=== PATIENT | male | born 1950 | race American Indian/Alaskan Native ===

== ENCOUNTER 2017-05-29 08:53 | Day surgery (SDC) | payer MEDICARE ==
[~2017-05-29 08:53] MED LIST: DIPRIVAN 10 MG/ML IV ONE; XYLOCAINE MPF 2% ONE
[2017-05-29] MEDS ORDERED: DIPRIVAN 10 MG/ML IV ONE ×2 (10:49)
[2017-05-29] MEDS ORDERED: WATER FOR IRRIG STERILE IR ONE (10:52)
--- NOTE | 2017-05-29 11:23 | Anesthesia Consultation ---
Anesthesia Consult and Med Hx Date of service: 05/29/17 - Airway Anesthetic Teeth Evaluation: Poor, Dentures (upper) ROM Head & Neck: Adequate Mental/Hyoid Distance: Adequate Mallampati Class: Class III Intubation Access Assessment: Possibly Difficult - Pulmonary Exam CTA: Yes - Cardiac Exam Cardiac Exam: RRR - Pre-Operative Health Status ASA Pre-Surgery Classification: ASA3 Proposed Anesthetic Plan: MAC - Pulmonary Hx Smoking: Yes (quit 1992) Hx Asthma: Yes COPD: Yes Hx Sleep Apnea: Yes - Cardiovascular System Hx Hypertension: Yes - Central Nervous System Hx Neuromuscular Disorder: No Hx Back Pain: Yes (neck pain, ACDF C3-5) - Gastrointestinal Hx Gastroesophageal Reflux Disease: Yes - Endocrine Hx Renal Disease: No (BPH) Hx Liver Disease: No Hx Insulin Dependent Diabetes: No - Hematic Hx Anemia: No Hx Sickle Cell Disease: No - Other Systems Hx Alcohol Use: No Hx Substance Use: No Hx Cancer: No Hx Obesity: No
--- NOTE | 2017-05-29 11:23 | Anesthesia Day of Surgery ---
Anesthesia Day of Surgery - Day of Surgery Patient Examined: Yes Patient H&P Reviewed: Yes Patient is NPO: Yes Beta Blockers: Yes
--- NOTE | 2017-05-29 11:46 | Short Stay Summary ---
Short Stay Documentation Date of service: 05/29/17 Narrative H&P: Patient presents for screening colonoscopy, FH of polyps. Last study approximately 1.5 years ago at which time he had 5 adenomas - History Past Medical History: COPD, hypertension Past Surgical History: Other (prostate surgery) Social history: no significant social history, , lives with family, no smoking, no alcohol abuse - Allergies and Medications Current Medications: Allergies bee venom (honey bee) Allergy (Verified 05/29/17 11:22) EXTREME SWELLING levofloxacin [From Levaquin] Adverse Reaction (Severe, Verified 05/09/16 08:38) Anaphylaxis Home Medications Medication Instructions Recorded Confirmed Last Taken Type Advair Diskus 500-50 mcg 2 puff INFILTRATI BID 05/09/16 05/29/17 05/28/17 History Cranberry 1 tab PO DAILY 05/09/16 05/29/17 05/08/16 History Diovan Hct 80-12.5 mg 1 tab PO DAILY 05/09/16 05/29/17 05/29/17 History Flomax 0.4 mg PO DAILY 05/09/16 05/29/17 05/28/17 History Fluticasone 1 spray INHALATION DAILY 05/09/16 05/29/17 05/29/17 History Ipratropium/Albuter (Nf) 1 puff INHALATION QID 05/09/16 05/29/17 05/08/16 History Levocetirizine Dihydrochloride 5 mg PO DAILY 05/09/16 05/29/17 05/08/16 History Omeprazole 40 mg PO DAILY 05/09/16 05/29/17 05/28/17 History Prednisone 10 mg PO DAILY 05/09/16 05/29/17 05/28/17 History Singulair 10 mg PO DAILY 05/09/16 05/29/17 05/27/17 History Xyzal 5 mg PO DAILY 05/09/16 05/29/17 05/08/16 History clonazePAM 2 mg PO DAILY 05/09/16 05/29/17 05/21/17 History traMADol 50 mg PO PRN PRN 05/09/16 05/29/17 05/06/16 History Active Medications Sodium Chloride (Nacl 0.9% 1000 Ml) 1,000 mls @ 50 mls/hr IV DIRECT JAYCOB Last Admin: 05/29/17 11:36 Dose: 50 mls/hr - Physical exam General appearance: no acute distress, well-nourished, obese Integumentary: no rash, no growths, no abnormal pigmentation HEENT: Atraumatic, PERRLA, EOMI, Mucous membr. moist/pink Lungs: Clear to auscultation, Normal air movement Breasts: deferred Heart: Regular rate, Normal S1, Normal S2, No murmurs, Murmur, Gallops Gastrointestinal: normoactive bowel sounds, no tenderness, no distended, no masses, no guarding, no hepatomegaly, no splenomegaly Male Genitourinary: deferred Rectal Exam: normal exam-external/orifice, normal rectal tone, no mass Extremities: no ischemia, pulses intact, pulses symmetrical, No edema, normal temperature, normal color, Full ROM Neurological: Normal gait, Normal speech, Strength at 5/5 X4 ext, Normal tone, Sensation intact, Cranial nerves 3-12 NL - Brief post op/procedure progress note Findings: see dictation - Discharge Diagnoses (1) History of colonic polyps Status: Acute Short Stay Discharge Plan Activity: other (no driving for 24 hours) Weight Bearing Status: Full Weight Bearing Diet: regular Follow up with: MELISSA FISH MD [Primary Care Provider] - 7 Days
--- NOTE | 2017-05-29 11:49 | Operative Report ---
Operative Report Operative Report: Date of procedure: 05/29/2017 Preprocedure diagnosis: History of 5 adenomas at last colonoscopy 1.5 years ago Post procedure diagnosis: Multiple left colon diverticula but no recurrent polyps Procedure: Colonoscopy to the cecum Endoscopist: Dr. Andrew Anesthesia: Monitored anesthesia care per anesthesia department Estimated blood loss: 0 Medications: Monitored anesthesia care. See separate report by anesthesia for details. After careful discussion of the nature and purpose of the procedure as well as details of the technique risks benefits and alternatives the patient gave consent. Please see recent history and physical from the office. The patient was placed in the left lateral decubitus position and medicated per anesthesia. A rectal exam was performed sphincter tone was normal there were no masses palpable. The [place]nn 570 scope was passed transanally and advanced under continuous direct vision without difficulty to the cecum. The colon was well prepared. The cecum was normal. The ascending colon was normal and on forward and retroflexed views. The transverse colon was normal. The descending colon and sigmoid colon revealed scattered diverticula throughout. The rectum was normal on forward and retroflexed views. The procedure was well-tolerated overall and the patient was observed in recovery. Conclusions: Moderate left colon diverticulosis, no recurrent polyps. Plan: Repeat colonoscopy in 5 years. Signed electronically: Jordon Andrew M.D.
[2017-05-29] MEDS ORDERED: NACL 0.9% 1000 ML 1,000 ML IV SCH (12:00)
[2017-05-29 12:19] VITALS: BP 118/64
--- NOTE | 2017-05-29 13:25 | Post Anesthesia Evaluation ---
- Post Anesthesia Evaluation Patient Participated: Yes Airway Patent: Yes Stable Respiratory Function: Yes Nausea/Vomiting: No Temp > 96.8F: Yes Pain Manageable: Yes Adequeate Hydration: Yes Anesthesia Complications: No
== END 2017-05-29 08:54 | disposition home or self-care (01) ==
LOC: GIO 08:53
PROVIDERS: ATTEND Internal Medicine Gastroenterology
DX: Z09 Encounter for follow-up examination after completed treatment for conditions other than malignant neoplasm (principal); K57.30 Diverticulosis of large intestine without perforation or abscess without bleeding; J44.9 Chronic obstructive pulmonary disease, unspecified; I10 Essential (primary) hypertension; K21.9 Gastro-esophageal reflux disease without esophagitis; Z87.891 Personal history of nicotine dependence; Z86.010 Personal history of colon polyps; Z98.890 Other specified postprocedural states; Z88.8 Allergy status to other drugs, medicaments and biological substances; Z91.030 Bee allergy status; Z83.71 Family history of colonic polyps
CPT/HCPCS: 45378; J2704